=== PATIENT | male | born 1975 | race Caucasian/White ===

== ENCOUNTER 2017-12-26 10:58 | Emergency (ER) | payer OTHER ==
[~2017-12-26] VITALS: Ht 170.2 cm; Wt 85.4 kg
[2017-12-26 11:18] VITALS: BP 133/90
--- NOTE | 2017-12-26 11:23 | NUR ---
PT AMBULATED TO ER BED 05
--- NOTE | 2017-12-26 11:41 | NUR ---
PATIENT PRESENTS TO ED WITH THE CHIEF C/O RIGHT FLANK PAIN AND PAIN AT ABDOMEN . PT STATES STARTED SINCE MORNING, IS ON AND OFF . DENIES N/V/D; SKIN IS PINK/WARM/DRY; AAOX4 WITH EVEN AND STEADY GAIT; LUNGS CLEAR BL; HR EVEN AND REGULAR; PT DENIES ANY FEVER, CP, SOB, OR COUGH AT THIS TIME; PATIENT STATES PAIN OF 9/10 AT THIS TIME; VSS; PATIENT POSITIONED FOR COMFORT; HOB ELEVATED; BEDRAILS UP X2; BED DOWN. ER MD MADE AWARE OF PT STATUS.
[2017-12-26] MEDS ORDERED: ONDANSETRON 4 MG/2 ML VIAL IVP ONE (11:50)
[2017-12-26] MEDS ORDERED: KETOROLAC 30 MG/ML VIAL IVP ONE (11:50)
[2017-12-26] MEDS ORDERED: NACL 0.9% 1,000 ML IV SCH (11:50)
[2017-12-26] MEDS ORDERED: NACL 0.9% 1,000 ML IV ONE (11:50)
--- NOTE | 2017-12-26 11:51 | NUR ---
FLUCTUATING HR 56-46. PT VERBAL, DENIES DIZZINESS AT THIS TIME. BP 129/73. DR. SCHUMACHER MADE AWARE.
[2017-12-26] MEDS ORDERED: MORPHINE SULFATE 5 MG/ML VIAL IVP ONE (12:30)
[2017-12-26 13:15] LABS: BASOPHILS # (AUTO) 0.1 K/uL (0.00-0.22); BASOPHILS % (AUTO) 0.5 % (0.0-2.0); EOSINOPHILS # (AUTO) 0.1 K/uL (0-0.4); EOSINOPHILS % (AUTO) 0.9 % (0.0-4.0); HEMOGLOBIN 13.9 g/dL (12.0-18.0); LYMPHOCYTES # (AUTO) 2.3 K/uL (2.0-11.5); LYMPHOCYTES % (AUTO) 13.7 % (20.5-51.1); MEAN CORPUSCULAR HEMOGLOBIN 30 pg (27-31); MEAN CORPUSCULAR HGB CONC 33 g/dL (33-37); MEAN CORPUSCULAR VOLUME 89.5 fL (80-94); MONOCYTES # (AUTO) 1.3 K/uL (0.8-1.0); MONOCYTES % (AUTO) 7.7 % (1.7-9.3); NEUTROPHILS # (AUTO) 13.2 K/uL (1.8-7.7); NEUTROPHILS % (AUTO) 77.2 % (42.2-75.2); PLATELET COUNT (AUTO) 310 K/uL (140-450); RED CELL DISTRIBUTION WIDTH 12.4 % (11.6-13.7); WHITE BLOOD COUNT (AUTO) 17.1 K/uL (4.8-10.8)
[2017-12-26 13:34] LABS: CREATININE 1.3 mg/dL (0.7-1.3)
[2017-12-26 13:46] LABS: APPEARANCE,URINE SL CLOUDY (CLEAR); BILIRUBIN,URINE NEGATIVE (NEGATIVE); BLOOD, URINE TRACE-I (NEGATIVE); COLOR,URINE YELLOW (YELLOW); LEUKOCYTE ESTERASE ,URINE NEGATIVE (NEGATIVE); NITRITE, URINE NEGATIVE (NEGATIVE); UGLUCOSE NEGATIVE (NEGATIVE)
[2017-12-26 13:48] LABS: TOTAL BILIRUBIN 0.7 mg/dL (0.0-1.0)
[2017-12-26 13:55] LABS: WBC,URINE 0-5 (RARE) /HPF (0-5)
[2017-12-26 13:56] LABS: RBC,URINE 0-5 (RARE) /HPF (0-5); URINE AMORPHOUS URATE 2+ /HPF (None Seen)
--- NOTE | 2017-12-26 14:16 | NUR ---
UNABLE TO GET MORPHINE 5 MG FROM PIXES. PHARMACY AND DR. SCHUMACHER MADE AWARE.
[2017-12-26] MEDS ORDERED: MORPHINE SULFATE 4 MG/ML SYR IVP ONE (14:20)
--- NOTE | 2017-12-26 14:28 | NUR ---
Patient discharged with v/s stable. Written and verbal after care instructions given and explained. Patient alert, oriented and verbalized understanding of instructions. Ambulatory with steady gait. All questions addressed prior to discharge. ID band removed. Patient advised to follow up with PMD. Rx of ibuprofen, zofran, tamsulosin, norco given. Patient educated on indication of medication including possible reaction and side effects. Opportunity to ask questions provided and answered.
[2017-12-26 14:29] VITALS: BP 110/60
--- NOTE | 2017-12-26 14:35 | NUR ---
MORPHINE NOT ADMINISTERED PER DR. SCHUMACHER.
== END 2017-12-26 14:28 | disposition home or self-care (01) ==
LOC: MED 11:04
DX: N20.0 Calculus of kidney (principal); R11.10 Vomiting, unspecified; R19.7 Diarrhea, unspecified; F15.90 Other stimulant use, unspecified, uncomplicated
CPT/HCPCS: 36415; 74176; 80053; 81001; 83690; 85025; 96361; 96374; 96375; 99285; J1885; J2405; J7030